=== PATIENT | female | born 1940 | race Caucasian/White ===

== ENCOUNTER 2016-09-13 07:42 | Inpatient (IN) | payer MEDICARE, MEDICAID ==
[~2016-09-13] VITALS: Ht 154.9 cm; Wt 78.6 kg
[2016-09-13] MEDS ORDERED: ONDANSETRON 2MG/ML, 2ML IVP ONE (09:00)
[2016-09-13] MEDS ORDERED: SODIUM CHLORIDE 0.9%, 500ML IVBOLUS ONE (09:00)
[2016-09-13] MEDS ORDERED: SODIUM CHLORIDE FLUSH 10ML SYR IVF ONE (09:00)
[2016-09-13] MEDS ORDERED: MORPHINE SULFATE 4 MG/ML, 1ML IVPush PRN (09:00)
[2016-09-13] MEDS ORDERED: ASPI-496 PO (09:59)
[2016-09-13] MEDS ORDERED: LORA10TA72 PO (10:00)
[2016-09-13] MEDS ORDERED: MORPHINE SULFATE 4 MG/ML, 1ML ONE (10:10)
[2016-09-13] MEDS ORDERED: ONDANSETRON 2MG/ML, 2ML ONE (10:10)
[2016-09-13 10:34] LABS: ASPARTATE AMINO TRANSFERASE 22 U/L (15-37); BLOOD UREA NITROGEN 12 mg/dL (7-18)
[2016-09-13 10:38] LABS: IS PT STATUS REG ER OR PRE ER? YES
[2016-09-13 14:12] VITALS: BP 121/75
[2016-09-13] MEDS ORDERED: DOCUSATE 100 MG CAPSULE PO PRN (14:30)
[2016-09-13] MEDS ORDERED: ZOLPIDEM 5MG TABLET PO PRN (14:30)
[2016-09-13] MEDS ORDERED: ACETAMINOPHEN 325 MG TABLET PO PRN (14:30)
[2016-09-13 15:01] LABS: TOTAL IRON BINDING CAPACITY 388 mcg/dL (250-450)
[2016-09-13 20:00] VITALS: BP 96/58
[2016-09-13] MEDS: GUAIFENESIN/DM 200-20MG, 10ML UDC PO PRN (20:34)
[2016-09-13] MEDS: SODIUM CHLORIDE FLUSH 10ML SYR IVF SCH (20:34)
[2016-09-13] MEDS: SULFAMETH./TRIMETHOPRIM DS 800MG/160MG TABLET PO SCH (20:34)
[2016-09-13] MEDS: ENOXAPARIN 40 MG/0.4 ML SQ SCH (20:39)
[2016-09-14 01:14] VITALS: BP 117/80
[2016-09-14 07:14] VITALS: BP 126/75
[2016-09-14] MEDS: ASPIRIN 81 MG TABLET EC PO SCH (09:05)
[2016-09-14] MEDS: SODIUM CHLORIDE FLUSH 10ML SYR IVF SCH ×2 (09:05→21:01)
[2016-09-14] MEDS: LORATADINE 10 MG TABLET PO SCH (09:05)
[2016-09-14] MEDS: SULFAMETH./TRIMETHOPRIM DS 800MG/160MG TABLET PO SCH ×2 (09:05→21:01)
[2016-09-14 13:04] VITALS: BP 152/67
[2016-09-14] MEDS: ENOXAPARIN 40 MG/0.4 ML SQ SCH (18:23)
[2016-09-14] MEDS: FERROUS SULFATE 325 MG TABLET PO SCH (18:36)
[2016-09-14 19:58] VITALS: BP 132/68
[2016-09-14] MEDS: GUAIFENESIN/DM 200-20MG, 10ML UDC PO PRN (21:02)
[2016-09-15 01:02] VITALS: BP 144/76
[2016-09-15 07:12] VITALS: BP 118/64
[2016-09-15] MEDS: FERROUS SULFATE 325 MG TABLET PO SCH (07:59)
[2016-09-15] MEDS: ASPIRIN 81 MG TABLET EC PO SCH (08:00)
[2016-09-15] MEDS: SULFAMETH./TRIMETHOPRIM DS 800MG/160MG TABLET PO SCH (08:00)
[2016-09-15] MEDS: LORATADINE 10 MG TABLET PO SCH (08:00)
[2016-09-15] MEDS: SODIUM CHLORIDE FLUSH 10ML SYR IVF SCH (08:02)
[2016-09-15 12:51] VITALS: BP 120/68
[2016-09-15] MEDS ORDERED: SULF1TAB3 PO (13:31)
== END 2016-09-15 14:29 | disposition home or self-care (01) | DRG 202 ==
LOC: ED 10:56 → EDIP 12:50 → 3NE 13:32 → DCLOUNGE 09-15 14:15
PROVIDERS: ADMIT Internal Medicine
DX: J20.9 Acute bronchitis, unspecified (principal); N39.0 Urinary tract infection, site not specified; E44.0 Moderate protein-calorie malnutrition; D64.9 Anemia, unspecified; J30.2 Other seasonal allergic rhinitis; B96.20 Unspecified Escherichia coli [E. coli] as the cause of diseases classified elsewhere; D50.9 Iron deficiency anemia, unspecified; Z59.0 Homelessness; F32.9 Major depressive disorder, single episode, unspecified; Z90.49 Acquired absence of other specified parts of digestive tract; Z82.49 Family history of ischemic heart disease and other diseases of the circulatory system; Z88.0 Allergy status to penicillin; E87.6 Hypokalemia; M19.90 Unspecified osteoarthritis, unspecified site
CPT/HCPCS: 36415; 71010; 80053; 81001; 83540; 83550; 83605; 83880; 84484; 85025; 87040; 87077; 87086; 87186; 93005; 93306; 96361; 96374; 96375; J1650; J2405; J7040